=== PATIENT | female | born 2000 | race Caucasian/White ===

== ENCOUNTER 2022-05-21 12:14 | Inpatient (IN) | payer MEDICAID ==
[~2022-05-21] VITALS: Ht 165.1 cm; Wt 89.3 kg
[2022-05-21 14:40] LABS: BASOPHILS % (AUTO) 0.4 % (0.0-2.0); EOSINOPHILS % (AUTO) 0.5 % (1.0-6.0); HEMATOCRIT 39.9 % (36-46); HEMOGLOBIN 13.3 g/dL (12.0-16.0); LYMPHOCYTES # (AUTO) 1.5 K/uL (1.0-4.8); LYMPHOCYTES % (AUTO) 16.1 % (22.0-44.0); MEAN CORPUSCULAR HEMOGLOBIN 25.4 pg (26.0-34.0); MEAN CORPUSCULAR HGB CONC 33.4 G/dL (31.0-37.0); MEAN CORPUSCULAR VOLUME 76 fL (80-100); MONOCYTES # (AUTO) 0.4 K/uL (0.1-1.0); MONOCYTES % (AUTO) 4.6 % (2.0-9.0); NEUTROPHILS # (AUTO) 7.2 K/uL (1.8-7.7); NEUTROPHILS % (AUTO) 78.4 % (40.0-70.0); PLATELET COUNT (AUTO) 432 K/uL (150-450); RED BLOOD CELL COUNT(AUTO) 5.24 MIL/uL (4.00-5.20); RED CELL DISTRIBUTION WIDTH 14.5 % (11.5-14.5)
[2022-05-21 14:51] LABS: ANION GAP 16 mmol/L (8-16); CARBON DIOXIDE 25 mmol/L (22-29); CHLORIDE 100 mmol/L (98-107); CREATININE 0.74 mg/dL (0.60-1.30); GLUCOSE,RANDOM 123 mg/dL (70-110); POTASSIUM 3.5 mmol/L (3.5-5.1); SODIUM SERUM 141 mmol/L (136-145); UREA NITROGEN, BLOOD 13 mg/dL (7-18)
[2022-05-21 14:52] LABS: GLOMERULAR FILTR. RATE CALC > 60 mL/min (>60)
[2022-05-21 14:57] LABS: ALANINE AMINOTRANSFERASE 48 U/L (12-78); ALBUMIN 4.1 g/dL (3.4-5.0); ALKALINE PHOSPHATASE 63 U/L (46-116); ASPARTATE AMINOTRANSFERASE 45 U/L (15-37); BILIRUBIN,TOTAL 0.4 mg/dL (0.1-1.0); TOTAL PROTEIN, SERUM 7.8 g/dL (6.4-8.2)
[2022-05-21] MEDS ORDERED: LORazepam 1 MG TABLET PO ONE (16:00)
[2022-05-21] MEDS ORDERED: HALOPERIDOL 5 MG TABLET PO ONE (16:00)
[2022-05-21 16:48] LABS: COVID AG,FIA SOURCE NASOPHARYNGEAL
[2022-05-21] MEDS ORDERED: HALOPERIDOL 5 MG TABLET PO PRN (17:30)
[2022-05-21 19:07] LABS: AMPHET/METH SCREEN,URINE NEGATIVE (NEGATIVE); BARBITURATE SCREEN, URINE NEGATIVE (NEGATIVE); BENZODIAZEPINES SCREEN,URINE NEGATIVE (NEGATIVE); CANNABINOID SCREEN,URINE NEGATIVE (NEGATIVE); COCAINE SCREEN,URINE NEGATIVE (NEGATIVE); METHADONE SCREEN, URINE NEGATIVE (NEGATIVE); OPIATE SCREEN,URINE NEGATIVE (NEGATIVE)
[2022-05-21 19:08] LABS: PHENCYCLIDINE SCREEN,URINE NEGATIVE (NEGATIVE)
[2022-05-21] MEDS ORDERED: DiphenhydrAMINE HCL 50 MG/ML VIAL IM ONE (19:45)
[2022-05-21] MEDS ORDERED: HALOPERIDOL LACTATE 5 MG/ML VIAL IM ONE (19:45)
[2022-05-21] MEDS ORDERED: DIAZEPAM 5 MG/ML 2 ML SYRINGE IM ONE (19:45)
[2022-05-22] MEDS: LORazepam 2 MG TABLET PO PRN ×3 (00:17→16:05)
[2022-05-22] MEDS: ZOLPIDEM TARTRATE 10 MG TABLET PO PRN ×2 (00:27→20:40)
[2022-05-22] MEDS ORDERED: ARIP20TA PO (08:15)
[2022-05-22] MEDS ORDERED: OLAN5TAB52 PO (08:15)
[2022-05-22 08:42] VITALS: BP 118/72
[2022-05-22 09:10] VITALS: BP 118/72
[2022-05-22] MEDS ORDERED: BACITRACIN 28 GM OINTMENT TP PRN (09:45)
[2022-05-22] MEDS ORDERED: OMEPRAZOLE 20 MG CAPSULE PO PRN (09:45)
[2022-05-22] MEDS ORDERED: PETROLATUM,WHITE 28 GM JELLY TP PRN (09:45)
[2022-05-22] MEDS ORDERED: MAGNESIUM HYDROXIDE SUSPENSION 30 ML UDCUP PO PRN (09:45)
[2022-05-22] MEDS ORDERED: ONDANSETRON HCL 4 MG TABLET PO PRN (09:45)
[2022-05-22] MEDS ORDERED: CloNIDine HCL 0.1 MG TABLET PO PRN (09:45)
[2022-05-22] MEDS ORDERED: ACETAMINOPHEN 325 MG TABLET PO PRN (09:45)
[2022-05-22] MEDS ORDERED: DOCUSATE SODIUM 100 MG CAPSULE PO PRN (09:45)
[2022-05-22] MEDS ORDERED: LOPERAMIDE HCL 2 MG CAPSULE PO PRN (09:45)
[2022-05-22] MEDS ORDERED: BENZOCAINE/MENTHOL LOZENGE PO PRN (09:45)
[2022-05-22] MEDS ORDERED: ALBUTEROL SULFATE HFA 90 MCG/PUFF 8 GM INHALER IH PRN (09:45)
[2022-05-22 18:29] VITALS: BP 120/70
[2022-05-22 20:03] VITALS: BP 111/70
[2022-05-23] MEDS: ARIPiprazole 15 MG TABLET PO SCH (09:00)
[2022-05-23] MEDS: DIVALPROEX SODIUM 500 MG DR TABLET PO SCH ×2 (09:00→16:08)
[2022-05-23] MEDS: LORazepam 2 MG TABLET PO PRN ×3 (09:28→21:56)
[2022-05-23] MEDS: NICOTINE 7 MG/24 HOUR PATCH TD SCH (18:13)
[2022-05-23] MEDS: MAG HYDROX/AL HYDROX/SIMETH ES 30 ML SUSPENSION UDCUP PO PRN (19:02)
[2022-05-23 20:39] VITALS: BP 132/96
[2022-05-23] MEDS: RisperiDONE 2 MG TABLET PO SCH (20:46)
[2022-05-24] MEDS: ZOLPIDEM TARTRATE 10 MG TABLET PO PRN
[2022-05-24] MEDS: MAG HYDROX/AL HYDROX/SIMETH ES 30 ML SUSPENSION UDCUP PO PRN ×3 (01:04→23:15)
[2022-05-24] MEDS: NICOTINE 7 MG/24 HOUR PATCH TD SCH (08:11)
[2022-05-24 08:17] VITALS: BP 112/69
[2022-05-24] MEDS: ARIPiprazole 15 MG TABLET PO SCH ×2 (08:19→16:11)
[2022-05-24] MEDS: RisperiDONE 2 MG TABLET PO SCH ×2 (08:19→20:58)
[2022-05-24] MEDS: DIVALPROEX SODIUM 500 MG DR TABLET PO SCH ×2 (08:19→16:08)
[2022-05-24] MEDS: LORazepam 2 MG TABLET PO PRN ×3 (10:15→20:58)
[2022-05-24 20:20] VITALS: BP 119/86
[2022-05-25] MEDS: DIVALPROEX SODIUM 500 MG DR TABLET PO SCH ×2 (08:12→16:06)
[2022-05-25] MEDS: NICOTINE 7 MG/24 HOUR PATCH TD SCH (08:13)
[2022-05-25] MEDS: RisperiDONE 2 MG TABLET PO SCH ×2 (08:13→20:05)
[2022-05-25] MEDS: ARIPiprazole 15 MG TABLET PO SCH (08:13)
[2022-05-25 08:21] VITALS: BP 114/68
[2022-05-25] MEDS: LORazepam 2 MG TABLET PO PRN ×3 (08:56→20:42)
[2022-05-25 20:04] VITALS: BP 127/87
[2022-05-25] MEDS: MAG HYDROX/AL HYDROX/SIMETH ES 30 ML SUSPENSION UDCUP PO PRN (20:43)
[2022-05-26] MEDS: ARIPiprazole 15 MG TABLET PO SCH (08:08)
[2022-05-26] MEDS: DIVALPROEX SODIUM 500 MG DR TABLET PO SCH ×2 (08:08→18:05)
[2022-05-26] MEDS: NICOTINE 7 MG/24 HOUR PATCH TD SCH (08:08)
[2022-05-26] MEDS: RisperiDONE 2 MG TABLET PO SCH ×2 (08:08→20:07)
[2022-05-26] MEDS: LORazepam 2 MG TABLET PO PRN ×3 (08:18→19:16)
[2022-05-26 08:21] VITALS: BP 132/82
[2022-05-26] MEDS: IBUPROFEN 600 MG TABLET PO PRN ×2 (08:42→18:19)
[2022-05-26 18:19] VITALS: BP 127/86
[2022-05-26 19:16] VITALS: BP 128/85
[2022-05-26 20:13] VITALS: BP 122/84
[2022-05-26] MEDS: ZOLPIDEM TARTRATE 10 MG TABLET PO PRN (20:42)
[2022-05-27 08:01] VITALS: BP 130/85
[2022-05-27] MEDS: DIVALPROEX SODIUM 500 MG DR TABLET PO SCH (08:05)
[2022-05-27] MEDS: RisperiDONE 2 MG TABLET PO SCH (08:06)
[2022-05-27] MEDS: NICOTINE 7 MG/24 HOUR PATCH TD SCH (08:06)
[2022-05-27] MEDS: LORazepam 2 MG TABLET PO PRN (08:06)
[2022-05-27] MEDS ORDERED: RISP2TAB86 PO (12:35)
[2022-05-27] MEDS ORDERED: DIVA-112 PO (12:35)
== END 2022-05-27 14:12 | disposition home or self-care (01) | DRG 750 ==
LOC: EMS 12:14 → B3A 18:56
PROVIDERS: ADMIT Psychiatry & Neurology Psychiatry; ATTEND Psychiatry & Neurology Psychiatry
DX: F20.9 Schizophrenia, unspecified (principal); E66.9 Obesity, unspecified; F32.A Depression, unspecified; F41.9 Anxiety disorder, unspecified; G47.00 Insomnia, unspecified; I45.6 Pre-excitation syndrome; K59.00 Constipation, unspecified; Z68.32 Body mass index [BMI] 32.0-32.9, adult; Z72.0 Tobacco use; Z71.6 Tobacco abuse counseling
CPT/HCPCS: 80053; 80164; 84703; 85025; 93005; 99291; G0480; J1200; J1630